=== PATIENT | female | born 1990 | race Caucasian/White ===

== ENCOUNTER 2017-03-04 16:09 | Emergency (ER) | payer OTHER ==
[2012-06-15 14:34] VITALS: BMI 25.5
== END 2017-03-04 18:22 | disposition home or self-care (01) ==
LOC: D.ER 16:09
DX: R22.9 Localized swelling, mass and lump, unspecified (principal); H11.32 Conjunctival hemorrhage, left eye; Y04.2XXA Assault by strike against or bumped into by another person, initial encounter; Y93.89 Activity, other specified; Y92.89 Other specified places as the place of occurrence of the external cause; F17.200 Nicotine dependence, unspecified, uncomplicated

== ENCOUNTER 2017-11-30 20:11 | Emergency (ER) | payer OTHER ==
[2012-06-15 14:34] VITALS: BMI 25.5
== END 2017-11-30 21:27 | disposition home or self-care (01) ==
LOC: D.ER 20:11
DX: K08.89 Other specified disorders of teeth and supporting structures (principal); K02.9 Dental caries, unspecified; M32.9 Systemic lupus erythematosus, unspecified